=== PATIENT | female | born 1955 | race Caucasian/White ===

== ENCOUNTER 2016-09-11 16:46 | Emergency (ER) | payer OTHER ==
[~2016-09-11] VITALS: Ht 162.6 cm; Wt 67.0 kg
[2016-09-11 16:50] VITALS: Ht 162.6 cm; Wt 67.0 kg
[2016-09-11] MEDS ORDERED: IBUPROFEN 800 MG TAB PO ONE (17:00)
--- NOTE | 2016-09-11 18:18 | RADRPT ---
PROCEDURE: X-ray right knee CLINICAL INDICATION: Fall TECHNIQUE: 3 views right knee COMPARISON: None FINDINGS: No acute fracture or dislocation. Soft tissues unremarkable. IMPRESSION: No acute fracture. RPTAT: [facility] Tucker Pettit Physician Date Time Electronically viewed and signed by Tucker Pettit Physician on 09/11/2016 18:18 RS/
[2016-09-11] MEDS ORDERED: IBUP-1542 PO (18:20)
--- NOTE | 2016-09-11 18:22 | RADRPT ---
PROCEDURE: X-ray right ankle CLINICAL INDICATION: Right ankle pain. TECHNIQUE: 3 views right ankle COMPARISON: None FINDINGS: No acute fracture or dislocation. Soft tissues unremarkable. IMPRESSION: No acute fracture. RPTAT: [facility] Physician Tiago Date Time Electronically viewed and signed by Tucker Pettit Physician on 09/11/2016 18:22 RS/
--- NOTE | 2016-09-11 18:24 | RADRPT ---
PROCEDURE: XR Right Elbow. CLINICAL INDICATION: Fall. Pain. TECHNIQUE: AP, lateral and oblique views of the right elbow performed. COMPARISON: None. FINDINGS: There is normal mineralization and alignment. No elevation of the anterior or posterior fat pad. No acute fracture or osseous lesion is identified. There is no significant joint space narrowing. The soft tissues are unremarkable. IMPRESSION: 1. Unremarkable examination. RPTAT:AAJJ Physician Natalee Date Time Electronically viewed and signed by Physician Natalee on 09/11/2016 18:24 DOREEN/
[2016-09-11 18:45] VITALS: BP 148/80; PULSE 60; RESP 18; TEMP 98.2
--- NOTE | 2016-09-11 19:27 | ERD ---
ER Documentation Chief Complaint Date/Time DATE: 09/11/16 TIME: 19:25 Chief Complaint Trip and fall c/o rt elbow, rt hip and rt knee HPI Patient is a 58-year-old female with no medical problems who presents with a slip and fall. 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 She did not hit her head and did not lose consciousness. She has right elbow pain, right knee pain, and right ankle pain. She has had no treatment as of yet. This happened just prior to arrival. ROS All systems reviewed and are negative except as per history of present illness. Medications Home Meds Active Scripts Ibuprofen* (Motrin*) 600 Mg Tab, 600 MG PO Q8, #30 TAB Prov:MITCHELL LEE MD 09/11/16 Allergies Allergies: Coded Allergies: No Known Allergy (Unverified , 09/11/16) PMhx/Soc Medical and Surgical Hx: pt denies Surgical Hx Hx Miscellaneous Medical Probl: Yes (Osteoporosis) Hx Alcohol Use: No Hx Substance Use: No Hx Tobacco Use: No Smoking Status: Never smoker FmHx Family History: No diabetes Physical Exam Vitals Vital Signs Date Time Temp Pulse Resp B/P Pulse Ox O2 Delivery O2 Flow Rate FiO2 09/11/16 18:45 98.2 60 18 148/80 98 Room Air 09/11/16 16:50 98.2 100 18 155/78 100 Physical Exam Const: Mild distress secondary to pain Head: Atraumatic Eyes: Normal Conjunctiva ENT: Normal External Ears, Nose and Mouth. Neck: Full range of motion..~ No meningismus. Resp: Clear to auscultation bilaterally Cardio: Regular rate and rhythm, no murmurs Abd: Soft, non tender, non distended. Normal bowel sounds Skin: No petechiae or rashes Back: No midline or flank tenderness Ext: Full range of motion of the right elbow, right knee and right ankle although there is pain with movement, no obvious deformity noted Neur: Awake and alert Psych: Normal Mood and Affect Results 24 hrs Current Medications Medications (Trade) Dose Ordered Sig/Vidal Route PRN Reason Start Time Stop Time Status Last Admin Dose Admin Ibuprofen (Motrin) 800 mg ONCE ONCE PO 09/11/16 17:00 09/11/16 17:01 DC 09/11/16 17:01 Procedures/MDM X-ray Elbow 3V Interpreted by me: Fat Pads: Normal Bones: No fracture Joints: No dislocation Foreign body: None X-ray Knee 3V Interpreted by me: Bones: No fracture Joints: No dislocation Foreign body: None X-ray Ankle 3V Interpreted by me: Bones: No fracture Joints: No dislocation Splint Note Type: Ru wrap Location: Right ankle Indication: Right ankle pain Splint Assessment: Neurovascularly intact post splint placement with good fit. Patient is a 60-year-old female who presents with a slip and fall. She had pain to the right elbow, knee, and ankle. X-ray showed no obvious fracture or dislocation. The patient was given an Ru wrap for comfort of the right ankle. The patient will be discharged home. She was given ibuprofen for pain. She can return for any worsening symptoms. She is ambulatory upon discharge. Please note that this did happen to her while she was at work. Departure Diagnosis: Primary Impression: Contusion Encounter type: initial encounter Contusion area: knee Laterality: right Qualified Code: S80.01XA - Contusion of right knee, initial encounter Additional Impression: Fall Encounter type: initial encounter Qualified Code: W19.XXXA - Fall, initial encounter Condition: Fair Patient Instructions: Contusion, Elbow, Contusion, Lower Extremity, Fall, Mechanical Additional Instructions: Call your primary care doctor TOMORROW for an appointment during the next 1-2 days.See the doctor sooner or return here if your condition worsens before your appointment time. MITCHELL LEE MD September 11, 2016 19:27
== END 2016-09-11 18:45 | disposition home or self-care (01) ==
LOC: E/R 16:46
DX: S80.01XA Contusion of right knee, initial encounter (principal); W10.9XXA Fall (on) (from) unspecified stairs and steps, initial encounter; Y92.9 Unspecified place or not applicable
CPT/HCPCS: 73562